=== PATIENT | female | born 1945 ===

== ENCOUNTER → 2019-03-21 | Emergency (ER) | payer OTHER ==
[~2019-03-21] VITALS: Ht 167.6 cm; Wt 77.1 kg
[~2019-03-21] MED LIST: ASPIRINA; BACLOFEN10 MG; CALCIUM; DONEPEZIL HCL O10 MG; ESCITALOPRAM 20 MG; FOLIC ACID 1 MG.; PRAVASTATIN 20 MG; TENORMIN25 MG; VITAMINA D-3; [UNRECOGNIZED DRUG - OTHER]
== END | disposition home or self-care (01) ==
LOC: ER 16:08
DX: R55 Syncope and collapse (principal); R11.10 Vomiting, unspecified; E86.0 Dehydration